=== PATIENT | male | born 1935 | race Two or more races ===

== ENCOUNTER 2021-09-07 18:36 | Emergency (ER) | payer OTHER ==
[~2021-09-07] VITALS: Ht 165.1 cm; Wt 65.8 kg
[2021-09-07] MEDS ORDERED: SYNTHROID88 MCG (18:50)
[2021-09-07] MEDS ORDERED: MILLIPRED5 MG (18:51)
[2021-09-07] MEDS ORDERED: PEPCID AC20 MG PO (22:48)
[2021-09-07] MEDS ORDERED: HIBICLENS118 ML TOP (22:48)
[2021-09-07] MEDS ORDERED: INTESTINEX680 M1 PO (22:48)
[2021-09-07] MEDS ORDERED: DICLOFENAC POTA50 MG PO (22:48)
== END 2021-09-07 22:52 ==
LOC: ER 18:36
DX: L03.114 Cellulitis of left upper limb (principal)

== ENCOUNTER 2022-09-05 15:48 | Emergency (ER) | payer OTHER ==
[~2022-09-05] VITALS: Ht 165.1 cm; Wt 61.2 kg
[~2022-09-05 15:48] MED LIST: DICLOFENAC POTA50 MG PO; HIBICLENS118 ML TOP; INTESTINEX680 M1 PO; MILLIPRED5 MG; PEPCID AC20 MG PO; SYNTHROID88 MCG
[2022-09-05] MEDS ORDERED: PROSCAR5 MG PO (15:57)
[2022-09-05] MEDS ORDERED: NEURIN PO (15:58)
[2022-09-05] MEDS ORDERED: ARICEPT10 MG PO (15:58)
[2022-09-05] MEDS ORDERED: TAMS0.4C PO (15:58)
[2022-09-05] MEDS ORDERED: CLONAZEPAM1 M1 PO (15:59)
[2022-09-05] MEDS ORDERED: VISTARIL50 MG PO (23:10)
[2022-09-05] MEDS ORDERED: DELTUSS DMX LI118 ML PO (23:10)
== END 2022-09-05 23:33 | disposition home or self-care (01) ==
LOC: ER 15:48
DX: U07.1 COVID-19 (principal); G30.9 Alzheimer's disease, unspecified; F02.80 Dementia in other diseases classified elsewhere, unspecified severity, without behavioral disturbance, psychotic disturbance, mood disturbance, and anxiety; E03.9 Hypothyroidism, unspecified; N40.0 Benign prostatic hyperplasia without lower urinary tract symptoms

== ENCOUNTER 2023-01-09 18:44 | Emergency (ER) | payer OTHER ==
[~2023-01-09] VITALS: Ht 165.1 cm; Wt 56.7 kg
[~2023-01-09 18:44] MED LIST changes: +ARICEPT10 MG PO; +CLONAZEPAM1 M1 PO; +DELTUSS DMX LI118 ML PO; +NEURIN PO; +PROSCAR5 MG PO; +TAMS0.4C PO; +VISTARIL50 MG PO
[2023-01-09] MEDS ORDERED: CLONAZEPAM1 MG PO (19:07)
[2023-01-09] MEDS ORDERED: RISPERIDONE1 MG PO (19:07)
[2023-01-09] MEDS ORDERED: FLUOXETINE HCL20 MG PO (19:07)
[2023-01-09] MEDS ORDERED: AQUAPHOR HEALIN50 GM TOP (21:54)
[2023-01-09] MEDS ORDERED: PEPCID AC20 MG PO (21:54)
[2023-01-09] MEDS ORDERED: INTESTINEX680 M1 PO (21:54)
== END 2023-01-09 22:10 | disposition home or self-care (01) ==
LOC: ER 18:44
DX: R19.7 Diarrhea, unspecified (principal); G30.9 Alzheimer's disease, unspecified; F02.80 Dementia in other diseases classified elsewhere, unspecified severity, without behavioral disturbance, psychotic disturbance, mood disturbance, and anxiety; E03.9 Hypothyroidism, unspecified; N40.0 Benign prostatic hyperplasia without lower urinary tract symptoms